=== PATIENT | male | born 1990 | race Caucasian/White ===

== ENCOUNTER 2017-01-18 13:19 | Emergency (ER) | payer OTHER ==
[~2017-01-18] VITALS: Ht 177.8 cm; Wt 97.1 kg
[2017-01-18 14:34] VITALS: BP 124/69
[2017-01-18] MEDS ORDERED: cefTRIAXone SOD 1,000 MG VL IM ONE (14:45)
== END 2017-01-18 15:04 | disposition home or self-care (01) ==
LOC: ER 13:31
DX: J34.0 Abscess, furuncle and carbuncle of nose (principal)
CPT/HCPCS: 96372; 99283; J0696